=== PATIENT | female | born 1960 | race Caucasian/White ===

== ENCOUNTER 2017-08-05 10:44 | Observation (INO) ==
--- NOTE | 2017-08-04 15:05 | History & Physical Report ---
Date of Encounter: 08/05/17 Time of Encounter: 12:30 24 Hour HP Update - Instructions Instructions: If the History and Physical is less than 30 days old and was completed prior to A.M. admission and or procedure and has NOT been updated on calendar day of procedure please complete this update prior to performing procedure. - Update Patient reports changes in Medical Condition: No Changes in examination, assessment, or condition: No Changes in Medication: No Preop tests/diagnostics Reviewed: Yes Pre-Op MRSA Screen: Negative Surgery Remains Indicated: Yes Consent for Planned Operative Procedure(s) Verified: Yes
--- NOTE | 2017-08-04 15:07 | Discharge Summary ---
Outpatient Proc Discharge Plan - Plan Additional Instructions: Call my office if you have any questions or problems. It is normal to have soreness where the catheter and pump was placed. If you notice swelling, redness, or drainage from the site, call me. If you have fever , chills, or a general feeling of being sick, call me. If you notice numbness or weakness in your limbs or difficulty passing urine, call me. We recommend lifting objects less than 5 pounds for the next 3 to 4 weeks. IMPORTANT DO NOT TAKE ANY MEDICATIONS CONTAINING ASPIRIN OR NSAID (NON-STEROIDAL ANTI- INFLAMMATORY DRUGS) FOR AT LEAST 24 HOURS AFTER YOUR SURGERY. DO NOT TAKE ANY BLOOD THINNING DRUGS FOR AT LEAST 24 HOURS AFTER YOUR SURGERY. IMPORTANT Do not submerge the incisions in water before they are totally healed. You can shower 24 hours after surgery. Simply leave the plastic bandage on your back in the shower. It is okay to allow water to run over the plastic bandage. Pat the bandage dry. Do not remove the bandage. We will remove the bandages in 2 weeks in the office. Always call the office if you feel there is a problem with your pump; we will help you. Home Medications: Albuterol Sulfate [Ventolin Hfa] 2 puff IH Q4H PRN 02/18/17 [History] Amlodipine Besylate 10 mg PO DAILY 02/18/17 [History] Biotin 1 mg PO DAILY 02/18/17 [History] Cyclobenzaprine [Flexeril] 10 mg PO QID PRN 02/18/17 [History] Fluticasone/Vilanterol [Breo Ellipta 100-25 Mcg INH] 1 puff IH DAILY 02/18/17 [ History] Ibuprofen [Motrin] 200 - 400 mg PO Q4-6H PRN 02/18/17 [History] Levothyroxine Sodium [Levoxyl] 200 mcg PO 0630 02/18/17 [History] Liothyronine Sodium [Cytomel] 25 mcg PO DAILY 02/18/17 [History] Loratadine [Claritin] 10 mg PO DAILY PRN 02/18/17 [History] Losartan/Hydrochlorothiazide [Hyzaar 100-25 Tablet] 1 tab PO DAILY 02/18/17 [ History] Omeprazole [PriLOSEC] 40 mg PO DAILY 02/18/17 [History] OxyCODONE Immed Rel [Roxicodone 10 MG] 10 mg PO QID PRN 02/18/17 [History]
--- NOTE | 2017-08-04 15:08 | Pain Management Procedure Note ---
Date of procedure: 08/05/17 Procedure: PHYSICIAN: DR. BOWERS PREOPERATIVE DIAGNOSIS: Failed Back Syndrome POSTOPERATIVE DIAGNOSIS: Same OPERATIVE PROCEDURE: Surgical implantation of intrathecal pump COMPLICATIONS: None ANESTHESIA: Local and Monitored Anesthesia Care IMAGES SAVED: AP view of final catheter tip position within the intrathecal space. SAFETY INFORMATION: Upon entering the procedure suite, we verified the following information with the patient: 1. The patient denies allergies to latex, iodine, steroids, and IV contrast. 2. The patient denies taking oral anticoagulants. 3. The patient denies recently being given injectable anticoagulants. 4. The patient denies recent hospital, Emergency Department, or inpatient rehabilitation admission. 5. The patient denies use of herbal medications, in particular garlic and ginkgo. 6. The patient denies solid food or non clear liquid intake for at least 8 hours and clear liquids for 2 hours. PROCEDURE: The patient was correctly identified. All questions were answered and informed , written consent was obtained. Noninvasive blood pressure, EKG, and pulse oximetry were instituted. An intravenous catheter was placed prior to the procedure. The IV line was subsequently used to deliver appropriate doses of anesthetic to keep the patient comfortable at certain times during this procedure. Strict sterile technique was followed throughout the procedure including surgical scrubbing and full body draping. The patient was brought to the fluoroscopy suite and placed in the prone position on the fluoroscopy table. Care was taken to pad all pressure points. With the aid of a sterile covered fluoroscope, the thoracolumbar skeletal anatomy was visualized by AP view. The skin of the entire thoracolumbar area was prepped with chlorohexidine; the area was allowed to dry. On the patients flank, the inferior border of the rib cage and the superior border of the iliac crest were marked with a surgical marker. An outline of the pump was also drawn between these locations above the typical belt line which was also marked on the skin. The patient's full body was draped in the usual sterile fashion. A surgical window of sterilized skin from iliac crest to rib cage was created. Sticky plastic film impregnated with iodine was then placed over the surgical skin which allowed us to visualize the prior marker lines. The C-arm was also fully draped with sterile drapes. An appropriate weight-based dose of antibiotic was administered prior to the procedure. At this point, the patient was awake and alert in order to report any paresthesias during needle placement in the neuraxis. I then advanced a sixteen gauge tuohy needle from skin to epidural space and finally into the intrathecal space as identified by the sudden appearance of CSF at the needle hub. Loss of resistance to air was used to identify the epidural space. A paramedian approach was used with the skin entry site being one full segment below and one to two centimeters lateral to the midline dural puncture site. I chose the skin entry site so that the final catheter position did not cross midline in order to reduce the chance for catheter fracture. The tuohy needle was inserted with cephalad angulation to allow for cephalad catheter placement. I then threaded a twenty gauge catheter to the T10/T11 interspace under AP fluoroscopic guidance. The patient did not report any paresthesias during catheter manipulation. At this point, the patient was sedated by the anesthesia team. I now outlined a vertical midline incision with a surgical marking pen that was 3 inches long and included the skin entry site for the needle. I then used a 1- 1/2 inch 25-gauge needle to place 20 mL of 0.5% bupivacaine with epinephrine along this line. I then used a 15 blade scalpel to open the skin along this incision. Electrocautery was used to control small areas of oozing blood. Blunt dissection was then used to dissect down to the fascial layer. The midline incision was then prepared for catheter insertion by ensuring that there was enough subcutaneous space to choral a loop of catheter in the midline wound. The pump was removed from the sterile package at this time and prepared for implantation by first emptying the reservoir and then filling the reservoir and flushing the catheter access port with preservative free normal saline. The pump reservoir was then filled with the prescribed solution that was unique to this patient, in this case normal saline. Leaving the tuohy needle in place to protect the catheter, two purse string silk sutures were placed, on the left and right sides of the needle. I removed the tuohy needle being careful not to pull the catheter back from the target area. The needle and catheter guide wire were removed in one smooth motion. CSF was observed to freely drip from the free end of the catheter. Lastly, I threaded an anchor dispenser tool assembly down the catheter to the point where catheter entered the thoracolumbar fascia. I pushed gently on the anchor so that the leading edges of the wings were flush with fascia. The free end of the catheter was clamped with rubber tipped forceps to prevent CSF backflow. The catheter was now secured to fascia by tying the previously laid sutures to the anchor wings. The anchor dispenser tool was used to deploy the catheter. CSF backflow was confirmed, and the catheter was reclamped. I then turned my attention to creating the pocket for the pump in the flank. Above the belt line, I placed a transverse linear skin wheal of local anesthetic. An eleven blade was used to open an incision just slightly larger than the pump at its widest point. The incision crossed the upper aspect of the marked [place]. Blunt dissection was carried out to open a pocket slightly smaller than the pump. I was careful to leave at least an inch but no more of adipose tissue between skin and pocket. Electrocautery was used to control small areas of oozing blood. At this point during the surgery, the patient began to vomit bile. The anesthesia team alerted me to this problem. The patient was able to breathe spontaneously and maintain oxygen saturation while her oral cavity was evacuated of emesis. Sedation was decreased and the patient was allowed to emerge from moderate sedation. She was quickly able to follow commands and take deep breaths. We discussed the case and decided to proceed given the fact that the patient was stable from a vital sign standpoint and had a relatively clear chest examination with auscultation albeit with some wheezing that is not necessarily new to this patient. Once the pocket was completed, I irrigated it copiously with normal saline containing antibiotic to ensure no bleeding vessels persisted. Next, I used a blunt tunneling tool to bring the catheter from the midline incision to the pump pocket. I trimmed excess catheter and then connected the spinal segment to the pump segment with the manufacturers connection device. Both ends of catheter were securely placed inside the connector under direct vision before locking the ends in place. CSF backflow could now be observed at the pump connection site. The sutureless pump connector was now pressed onto the spinal infusion port until it snapped into place. The connection was solid. The refill port faced outward. The pump was interrogated and found to be working properly. We then set the initial infusion parameters. The midline and lateral wounds were copiously irrigated; no bleeding was noted. A strain relief loop of catheter was created in the midline incision before closing. Both incisions were now closed and dressed. As I began to close the incisions, another bout of emesis was noted from the patient's mouth. Again, the patient was stable and able to take deep breaths. Our concern for aspiration remained low. I used 0-0 barbed absorbable self locking suture to approximate the subcutaneous layer using a running stitch. The dermis was closed with a 2-0 barbed absorbable self locking suture using a running stitch. The skin edges were well approximated. I then placed a Zipline device to approximate the skin edges of both incisions. The final dressing was a Tegaderm with impregnated hexagonal cushioning. The sponge and instrument counts were correct. The patient tolerated the entire procedure well apart from two episodes of emesis. The sterile field was taken down, and the patient was moved to the recovery room. We checked a chest film which showed clear costophrenic angles and no evidence for aspiration. Her chest exam in the recovery room indicated anterior upper chest wheezing with auscultation and all other lung correa were clear. I decided to admit her for observation overnight and check a new chest x -ray in the morning to further look for evidence of potential aspiration. We will provide supplemental oxygen and albuterol treatments overnight. Pain control will be done with Percocet for now and a plan to switch to lower strength Vicodin with Motrin in the morning. Intrathecal infusion is currently off until she is cleared from a pulmonary standpoint. Counseling regarding standard precautions after intrathecal pump placement was done. Most specifically, the patient was counseled regarding avoiding extreme postural changes for the next several weeks. I advised bed rest for the next 12 to 24 hours to reduce the effects of possible spinal headache. Was there an assistant county engineer present: No Estimated blood loss (cc): 5 Specimen: 0
[2017-08-05] MEDS ORDERED: CeFAZolin Syr 2,000MG/20 ML 2,000 MG/20 ML SYRINGE IVPB ONE (11:04)
[2017-08-05] MEDS: Albuterol 2.5 MG/3 ML NEBULIZER IH ONE ×2 (11:20→16:40)
--- NOTE | 2017-08-05 11:36 | Anesthesia Evaluation PreOp ---
Date of Encounter: 08/05/17 Time of Encounter: 11:35 - Past History Planned Operation: Pain Pump Implant Cardiac History: HTN, Hyperlipidemia Pulmonary History: Asthma [employer]ARM [employer] History: Denies Any Significant HX Other Medical History: Diabetes Type II (159 accu check), Thyroid, GERD, Other ( Obese) Anesthesia History: No Prior Anesthetic Complications : No (Hysterectomy) Alcohol Use: none Drug use: none Medications and Allergies Albuterol Sulfate [Ventolin Hfa] 2 puff IH Q4H PRN 02/18/17 [History] Amlodipine Besylate 10 mg PO DAILY 02/18/17 [History] Biotin 1 mg PO DAILY 02/18/17 [History] Cyclobenzaprine [Flexeril] 10 mg PO QID PRN 02/18/17 [History] Fluticasone/Vilanterol [Breo Ellipta 100-25 Mcg INH] 1 puff IH DAILY 02/18/17 [ History] Losartan/Hydrochlorothiazide [Hyzaar 100-25 Tablet] 1 tab PO DAILY 02/18/17 [ History] Omeprazole [PriLOSEC] 40 mg PO DAILY 02/18/17 [History] HYDROcodone/Acet 10/325 mg [[place] 10-325 mg] 1 tab PO Q6HR PRN 08/05/17 [History ] Thyroid,Pork [Gary Thyroid] 180 mg PO DAILY 08/05/17 [History] Thyroid,Pork [Thyroid] 90 mg PO WE 08/05/17 [History] Vitamin E 1,000 unit PO DAILY 08/05/17 [History] 3 Allergy/AdvReac Type Severity Reaction Status Date / Time liraglutide [From Victoza] Allergy Hives Verified 08/05/17 11:17 morphine AdvReac Severe Vomiting Verified 08/05/17 11:17 Tizanidine [From Zanaflex] AdvReac Severe Headache Verified 08/05/17 11:17 gabapentin [From Neurontin] AdvReac Dizziness Verified 08/05/17 11:17 pregabalin [From Lyrica] AdvReac Dizziness Verified 08/05/17 11:17 - Meds/Allergy Pre-op Review Medications Reviewed: Yes Allergies Reviewed: Yes Beta Blockers on Current Med List: No Anesthesia Results - Labs Laboratory Tests 07/30/14 02/09/17 07/25/17 09:05 12:45 11:08 Hgb 14.9 Hct 44.7 Plt Count 318 Sodium 141 Potassium BUN 10 Creatinine 0.67 07/25/17 11:08 Hgb Hct Plt Count Sodium Potassium 3.6 BUN Creatinine - Imaging EKG: report reviewed (SR Left Ventricular Hypertrophy) Anesthesia Exam O2 Sat Height 1.63 m Height 1.63 m Height 1.63 m Weight 97.976 kg Weight 97.976 kg Weight 97.976 kg O2 Sat by Pulse Oximetry 99 Vital Signs Temp Pulse Resp BP Pulse Ox 97.6 F 88 18 128/91 99 08/05/17 11:05 08/05/17 11:05 08/05/17 11:05 08/05/17 11:05 08/05/17 11:05 Height: 5'4 Weight: 216 lbs NPO (# of Hours): MN Pain Scale: 0 - HEENT Pupil (Motor): Pupils equal, EOMI Mallampati: III Denture Type: Upper: Complete Oral Opening: Greater than 3 - 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
[2017-08-05] MEDS ORDERED: Pregabalin 75 MG CAPSULE PO ONE (11:38)
[2017-08-05] MEDS ORDERED: Famotidine 20 MG/2 ML VIAL IVP ONE (11:38)
[2017-08-05] MEDS ORDERED: Acetaminophen IV 1,000 MG/100 ML INFUS..BTL IVPB ONE (11:38)
[2017-08-05] MEDS ORDERED: Bupivacaine/EPI 1:200k 0.5%PF 30 ML VIAL ONE (12:48)
[2017-08-05] MEDS ORDERED: Lidocaine -MPF 2% 2 ML VIAL ONE (12:53)
[2017-08-05] MEDS ORDERED: *HR* Propofol 200 MG/20 ML VIAL IVP ONE (12:53)
[2017-08-05] MEDS ORDERED: Lidocaine -MPF 4% 5 ML AMPUL ONE (12:53)
[2017-08-05] MEDS ORDERED: *HR* Succinylcholine 200 MG/10 ML VIAL IVP ONE (12:53)
[2017-08-05] MEDS ORDERED: Ondansetron 4 MG/2 ML VIAL ONE (12:53)
[2017-08-05] MEDS ORDERED: *HR* FentaNYL (PF) 100 MCG/2 ML VIAL ONE (12:53)
[2017-08-05] MEDS ORDERED: Dexamethasone 4 MG/ML VIAL ONE (12:53)
[2017-08-05] MEDS ORDERED: *HR* Midazolam HCl 2 MG/2 ML VIAL ONE (13:04)
[2017-08-05] MEDS ORDERED: Propofol 500 MG/50 ML INFUS..BTL ONE ×2 (13:05→15:14)
[2017-08-05] MEDS ORDERED: EPHEDrine 50 MG/ML VIAL ONE (14:19)
[2017-08-05] MEDS ORDERED: *HR* HYDROcodone/Acet 10/325 mg TABLET PO ONE (16:34)
[2017-08-05] MEDS ORDERED: Albuterol Neb 1.25 MG/3 ML VIAL IH ONE (16:35)
[2017-08-05] MEDS ORDERED: Albuterol 2.5 MG/3 ML NEBULIZER ONE (16:38)
[2017-08-05] MEDS ORDERED: *HR* HYDROcodone/Acet 5/325 mg TABLET PO ONE (17:12)
[2017-08-05] MEDS: Ringers Solution, Lactated 1,000 ML IVC SCH ×2 (19:34→22:09)
[2017-08-05] MEDS ORDERED: Acetaminophen 325 MG TABLET PO PRN (21:19)
[2017-08-06] MEDS: *HR* OxyCODONE/APAP 10/325 TABLET PO PRN ×3 (00:34→10:41)
[2017-08-06] MEDS ORDERED: Thyroid (Amour) 30 MG TABLET PO SCH (06:30)
[2017-08-06] MEDS ORDERED: (Fluticasone/Vilanterol [Breo Ellipta 100-25 Mcg Inh] IH SCH (09:00)
[2017-08-06] MEDS ORDERED: Losartan/HCTZ 50-12.5 TABLET PO SCH (09:00)
[2017-08-06] MEDS ORDERED: (Biotin [Biotin] 1 MG) PO SCH (09:00)
[2017-08-06] MEDS ORDERED: amLODIPine 5 MG TABLET PO SCH (09:00)
[2017-08-06 14:31] VITALS: BP 102/63
[2017-08-10] MEDS ORDERED: Thyroid (Amour) 30 MG TABLET PO SCH (06:30)
== END 2017-08-06 19:30 | disposition home or self-care (01) | DRG 347 ==
LOC: SAMDAY 10:44 → INTOOBSV 17:44 → 3ANU 17:44
PROVIDERS: ADMIT Student in an Organized Health Care Education/Training Program; ATTEND Student in an Organized Health Care Education/Training Program

== ENCOUNTER 2020-06-11 16:43 | Observation (INO) ==
[2020-06-11] MEDS ORDERED: Isovue-370 500 ML BOTTLE IVP ONE (17:11)
[2020-06-11 17:29] LABS: Basophils % 0.3 %; Eosinophils # 0.1 K/mcL (0.0-0.6); Hematocrit 40.3 % (35.3-44.9); Hemoglobin 13.3 g/dL (11.5-15.4); Immature Granulocytes % 0.5 % (0-4); Lymphocytes # 2.8 K/mcL (0.6-4.6); Lymphocytes % 43.2 %; Mean Corpuscular Hemoglobin 28.2 pg (28.0-33.3); Mean Corpuscular Volume 85.4 fL (83.0-100.0); Mean Platelet Volume 9.5 fL (9.4-12.4); Monocytes # 0.4 K/mcL (0.0-1.3); Monocytes % 6.3 %; Neutrophils # 3.1 K/mcL (1.6-8.9); Platelet Count 243 K/mcL (140-400); Red Blood Count 4.72 M/mcL (3.82-4.97); Segmented Neutrophils % 47.7 %; White Blood Count 6.5 K/mcL (4.3-11.1)
[2020-06-11 17:50] LABS: BUN/Creatinine Ratio 14 (6-26); Blood Urea Nitrogen 8 mg/dL (6-20); Calcium 9.2 mg/dL (8.6-10.3); Carbon Dioxide 30 mEq/L (23-29); Chloride 100 mEq/L (98-107); Glucose 156 mg/dL (70-105); Osmolality,Calculated 286 (280-300); Potassium 3.3 mEq/L (3.5-5.1); Sodium 137 mEq/L (136-145); Troponin I < 0.03 ng/mL (< 0.04); eGFR For African Americans > 60 (> 60); eGFR For Non-African Americans > 60 (> 60)
[2020-06-11] MEDS ORDERED: *HR* Heparin 5,000 UNIT/ML VIAL IVP ONE (18:42)
[2020-06-11] MEDS ORDERED: *HR* Heparin 5,000 UNIT/ML VIAL IVP PRN ×2 (18:42)
[2020-06-11] MEDS: Heparin 25,000UNIT/250ML 1/2NS 25,000 UNIT/250 ML IV.SOLN IVC SCH (19:07)
[2020-06-11 19:15] LABS: INR 1.1
[2020-06-11 19:18] LABS: Activated Partial Thrombo Time 33.8 Seconds (26.0-36.0)
[2020-06-11] MEDS ORDERED: Naloxone 0.4 MG/ML INJ IVP PRN (19:25)
[2020-06-11] MEDS ORDERED: Ondansetron ODT 4 MG TAB.RAPDIS SL PRN (19:25)
[2020-06-11] MEDS ORDERED: Acetaminophen 325 MG TABLET PO PRN (19:25)
[2020-06-11] MEDS ORDERED: Perflutren Lipid Microsphere 1.3 ML in 0.9 % Sodium Chloride 8.7 ML IVP PRN (19:27)
[2020-06-12] MEDS: Melatonin 3 MG TABLET PO SCH ×2 (03:34→20:13)
[2020-06-12 05:10] LABS: Basophils % 0.5 %; Eosinophils # 0.1 K/mcL (0.0-0.6); Eosinophils % 2.1 %; Hemoglobin 12.3 g/dL (11.5-15.4); Immature Granulocytes % 0.2 % (0-4); Lymphocytes # 2.8 K/mcL (0.6-4.6); Mean Corpuscular HGB Conc 34.2 g/dL (31.6-35.5); Mean Corpuscular Hemoglobin 29.6 pg (28.0-33.3); Mean Corpuscular Volume 86.5 fL (83.0-100.0); Mean Platelet Volume 9.6 fL (9.4-12.4); Monocytes # 0.3 K/mcL (0.0-1.3); Monocytes % 5.9 %; Neutrophils # 2.3 K/mcL (1.6-8.9); Platelet Count 226 K/mcL (140-400); Red Blood Count 4.16 M/mcL (3.82-4.97); Segmented Neutrophils % 41.3 %; White Blood Count 5.6 K/mcL (4.3-11.1)
[2020-06-12 05:30] LABS: Alanine Aminotransferase 6 Units/L (7-52); Albumin 3.4 g/dL (3.5-5.7); Albumin/Globulin Ratio 1.1 (1.1-2.2); Alkaline Phosphatase 86 Units/L (34-104); Aspartate Amino Transferase 23 Units/L (13-39); BUN/Creatinine Ratio 14 (6-26); Bilirubin,Total 0.6 mg/dL (0.3-1.0); Blood Urea Nitrogen 9 mg/dL (6-20); Calcium 8.3 mg/dL (8.6-10.3); Carbon Dioxide 28 mEq/L (23-29); Chloride 102 mEq/L (98-107); Chol/HDL Ratio 4.5 (0-4.9); Cholesterol 144 mg/dL (< 200); Globulin 3.1 g/dL (2.4-3.5); Glucose 196 mg/dL (70-105); HDL Cholesterol 32 mg/dL (40-59); LDL Cholesterol,Calculated 86 mg/dL (< 100); Magnesium 1.7 mg/dL (1.6-2.6); Osmolality,Calculated 290 (280-300); Phosphorous 3.7 mg/dL (2.7-4.5); Potassium 3.4 mEq/L (3.5-5.1); Sodium 138 mEq/L (136-145); Total Protein 6.5 g/dL (6.4-8.9); Triglycerides 131 mg/dL (< 150); eGFR For African Americans > 60 (> 60); eGFR For Non-African Americans > 60 (> 60)
[2020-06-12] MEDS: Losartan/HCTZ 50-12.5 TABLET PO SCH (09:34)
[2020-06-12] MEDS: amLODIPine 5 MG TABLET PO SCH (09:34)
[2020-06-12] MEDS: Thyroid (Amour) 30 MG TABLET PO SCH (09:38)
[2020-06-12] MEDS ORDERED: Perflutren Lipid Microsphere 1.3 ML in 0.9 % Sodium Chloride 8.7 ML IVP PRN (13:25)
[2020-06-12] MEDS ORDERED: *HR* HYDROcodone/Acet 5/325 mg TABLET PO PRN (13:52)
[2020-06-12] MEDS ORDERED: levoFLOXacin 750 MG TABLET PO SCH (14:00)
[2020-06-12] MEDS: Heparin 25,000UNIT/250ML 1/2NS 25,000 UNIT/250 ML IV.SOLN IVC SCH (15:05)
[2020-06-12] MEDS: Azithromycin 250 MG TABLET PO SCH (17:13)
[2020-06-13 03:38] LABS: BUN/Creatinine Ratio 22 (6-26); Blood Urea Nitrogen 14 mg/dL (6-20); Carbon Dioxide 28 mEq/L (23-29); Chloride 102 mEq/L (98-107); Glucose 244 mg/dL (70-105); Osmolality,Calculated 293 (280-300); Potassium 3.4 mEq/L (3.5-5.1); Sodium 137 mEq/L (136-145); eGFR For African Americans > 60 (> 60); eGFR For Non-African Americans > 60 (> 60)
[2020-06-13] MEDS: Thyroid (Amour) 30 MG TABLET PO SCH (08:55)
[2020-06-13] MEDS: amLODIPine 5 MG TABLET PO SCH (08:56)
[2020-06-13] MEDS: Losartan/HCTZ 50-12.5 TABLET PO SCH (08:56)
[2020-06-13] MEDS ORDERED: levoFLOXacin 750 MG TABLET PO SCH (09:00)
[2020-06-13] MEDS: Heparin 25,000UNIT/250ML 1/2NS 25,000 UNIT/250 ML IV.SOLN IVC SCH (09:12)
[2020-06-13] MEDS ORDERED: Apixaban 5 MG TABLET PO SCH (12:00)
[2020-06-13] MEDS ORDERED: Aspirin 81 MG TAB.CHEW PO SCH (14:00)
[2020-06-13] MEDS ORDERED: Aspirin 81 MG TAB.CHEW ONE (14:19)
[2020-06-13] MEDS: Azithromycin 250 MG TABLET PO SCH (14:20)
[2020-06-13 19:35] VITALS: BP 118/69
[2020-06-19] MEDS ORDERED: Apixaban 5 MG TABLET PO SCH (09:00)
== END 2020-06-13 20:30 | disposition home or self-care (01) ==
LOC: 2NENU 16:43 → EMEROOARM 16:43 → 2NENU 21:48
PROVIDERS: ADMIT Internal Medicine; ATTEND Internal Medicine